=== PATIENT | male | born 1965 | race Caucasian/White ===

== ENCOUNTER 2017-01-03 06:25 | Emergency (ER) | payer OTHER ==
[~2017-01-03] VITALS: Ht 170.2 cm; Wt 89.3 kg
[2017-01-03] MEDS ORDERED: LISI2.5T PO (06:33)
[2017-01-03] MEDS ORDERED: SODIUM CHLORIDE FLUSH 10ML SYR IVF ONE (07:00)
[2017-01-03] MEDS ORDERED: SODIUM CHLORIDE 0.9% 1,000ML IVBOLUS ONE (07:00)
[2017-01-03 07:09] LABS: BLOOD UREA NITROGEN 12 mg/dL (7-18)
[2017-01-03 07:15] LABS: IS PT STATUS REG ER OR PRE ER? YES
[2017-01-03 07:31] LABS: HEMATOCRIT 33.3 % (39.2-51.8); HEMOGLOBIN 10.8 g/dL (13.7-18.0); WHITE BLOOD COUNT 9.6 x10^3/uL (3.4-10)
[2017-01-03 08:52] VITALS: BP 111/81
== END 2017-01-03 08:55 | disposition home or self-care (01) ==
LOC: ED 06:52
DX: R55 Syncope and collapse (principal); I10 Essential (primary) hypertension; Z86.711 Personal history of pulmonary embolism; Z86.718 Personal history of other venous thrombosis and embolism
CPT/HCPCS: 36415; 71010; 80048; 82040; 84484; 85025; 96360; 99285; J7030